=== PATIENT | female | born 1955 | race Caucasian/White ===

== ENCOUNTER → 2020-07-18 17:40 | Outpatient (CLI) | payer OTHER, SELFPAY ==
--- NOTE | ~2020-07-18 | DEXA_ITS ---
Bone Density Report Name: Mabel Hernandez Age: 64 Sex: Female Ethnicity: White Date of : 1955 Indication: postmenopausal osteoporosis; monitoring treatment; prior fracture; hysterectomy; Referring Provider: Anna Martínez Study: Bone densitometry was performed. Exam Date: July 18, 2020 Accession number: [id number] Bone Density: Region BMD T-score Z-score Classification AP Spine (L1-L4) 0.716 -3.0 -1.3 Osteoporosis Femoral Neck (Left) 0.561 -2.6 -1.1 Osteoporosis Total Hip (Left) 0.746 -1.6 -0.4 Osteopenia Femoral Neck (Right) 0.521 -3.0 -1.5 Osteoporosis Total Hip (Right) 0.644 -2.4 -1.3 Osteopenia Total Hip Mean 0.695 -2.0 -0.9 Osteopenia World Health Organization criteria for BMD impression classify patients as: Normal (T-score at or above -1.0), Osteopenia (T-score between -1.0 and -2.5), or Osteoporosis (T-score at or below -2.5). 10-year Fracture Risk: FRAX not reported because: Some T-score for Spine Total or Hip Total or Femoral Neck at or below -2.5 Treated for osteoporosis Previous Exams: Region Exam Age BMD T-score BMD Change BMD Change Date g/cm2 vs Baseline vs Previous AP Spine(L1-L4) 07/18/2020 64 0.716 -3.0 -0.038* 0.016 05/27/2019 63 0.700 -3.2 -0.055* -0.032* 01/18/2016 60 0.731 -2.9 -0.023* -0.023* 09/24/2013 58 0.754 -2.7 Total Hip(Left) 07/18/2020 64 0.746 -1.6 -0.034* 0.009 05/27/2019 63 0.737 -1.7 -0.043* 0.008 01/18/2016 60 0.729 -1.7 -0.051* -0.051* 09/24/2013 58 0.780 -1.3 Total Hip(Right) 07/18/2020 64 0.644 -2.4 -0.014 0.000 05/27/2019 63 0.644 -2.4 -0.014 -0.013 01/18/2016 60 0.656 -2.3 -0.001 -0.001 09/24/2013 58 0.657 -2.3 *Denotes significance at 95% confidence level, LSC for AP Spine = 0.022 g/cm2, LSC for Total Hip = 0.027 g/cm2 Clinical Information Provided by Patient: Has had a low trauma fracture Is being treated for osteoporosis Has used the following medications: Actonel (i.e. risedronate), Vitamin D Has the following medical conditions: Hysterectomy Patient maximum height was 63.5 Menopause Age: 41 Drinks caffeinated beverages Onset of menses at age 12 Number of children 2 Impression: The patient has established osteoporosis, based on the Total Spine T-score and the existence of a prior fr
--- NOTE | ~2020-07-18 | MM_ITS ---
EXAMINATION: MM screening horace BI w aditi HISTORY: Screening mammogram TECHNIQUE: Craniocaudal and mediolateral oblique 3-D tomosynthesis images were obtained and synthetic 2-D images were generated. Bilateral rotated lateral cc views. CAD analysis was submitted and interp reted. COMPARISON: 05/27/2019, 01/14/2018, 01/18/2016 bilateral digital screening mammogram examinations BREAST PARENCHYMAL COMPOSITION: The breasts are heterogeneously dense, which may obscure small masses . FINDINGS: There is no evidence of suspicious mass, calcification, or architectural distortion to sugg est malignancy in either breast. There has been no suspicious interval change. IMPRESSION: 1. No mammographic evidence of malignancy. 2. Recommend routine screening mammography in one year. BI-RADS Category 1: Negative Reviewed, dictated and finalized at location A. ISH REMOVER
== END ==
PROVIDERS: Visit Provider Nurse Practitioner
DX: Z12.31 Encounter for screening mammogram for malignant neoplasm of breast (principal); Z78.0 Asymptomatic menopausal state; M85.89 Other specified disorders of bone density and structure, multiple sites; M81.0 Age-related osteoporosis without current pathological fracture
CPT/HCPCS: 77063; 77067; 77080

== ENCOUNTER → 2021-10-30 10:02 | Outpatient (CLI) | payer OTHER, SELFPAY ==
--- NOTE | ~2021-10-30 | MM_ITS ---
EXAMINATION: MM screening horace BI w aditi HISTORY: Screening mammogram TECHNIQUE: Craniocaudal and mediolateral oblique 3-D tomosynthesis images were obtained and synthetic 2-D images were generated. CAD analysis was submitted and interpreted. COMPARISON: 07/18/2020, 05/26/2019, 01/2018 bilateral screening mammogram examinations BREAST PARENCHYMAL COMPOSITION: FINDINGS: There is no evidence of suspicious mass, calcification, or architectural distortion to sugg est malignancy in either breast. There has been no suspicious interval change. IMPRESSION: 1. No mammographic evidence of malignancy. 2. Recommend routine screening mammography in one year. BI-RADS Category 1: Negative Reviewed, dictated and finalized at location A.
== END ==
PROVIDERS: PCP Internal Medicine; Visit Provider Nurse Practitioner
DX: Z12.31 Encounter for screening mammogram for malignant neoplasm of breast (principal)
CPT/HCPCS: 77063; 77067

== ENCOUNTER → 2022-08-27 12:24 | Outpatient (CLI) | payer MEDICARE, OTHER, SELFPAY ==
--- NOTE | ~2022-08-27 | DEXA_ITS ---
Bone Density Report Name: JOON RUIZ Age: 67 Sex: Female Ethnicity: White Date of : 1955 Indication: postmenopausal osteoporosis; monitoring treatment; prior fracture; hysterectomy; Referring Provider: Anna Martínez Study: Bone densitometry was performed. Exam Date: August 27, 2022 Accession number: [id number] Bone Density: Region BMD T-score Z-score Classification AP Spine (L1-L4) 0.693 -3.2 -1.4 Osteoporosis Femoral Neck (Left) 0.541 -2.8 -1.2 Osteoporosis Total Hip (Left) 0.708 -1.9 -0.6 Osteopenia Femoral Neck (Right) 0.528 -2.9 -1.3 Osteoporosis Total Hip (Right) 0.631 -2.5 -1.3 Osteoporosis Total Hip Mean 0.670 -2.2 -1.0 Osteopenia World Health Organization criteria for BMD impression classify patients as: Normal (T-score at or above -1.0), Osteopenia (T-score between -1.0 and -2.5), or Osteoporosis (T-score at or below -2.5). 10-year Fracture Risk: FRAX not reported because: Some T-score for Spine Total or Hip Total or Femoral Neck at or below -2.5 Treated for osteoporosis Previous Exams: Region Exam Age BMD T-score BMD Change BMD Change Date g/cm2 vs Baseline vs Previous AP Spine(L1-L4) 08/27/2022 67 0.693 -3.2 -0.061* -0.023* 07/18/2020 64 0.716 -3.0 -0.038* 0.016 05/27/2019 63 0.700 -3.2 -0.055* -0.032* 01/18/2016 60 0.731 -2.9 -0.023* -0.023* 09/24/2013 58 0.754 -2.7 Total Hip(Left) 08/27/2022 67 0.708 -1.9 -0.072* -0.037* 07/18/2020 64 0.746 -1.6 -0.034* 0.009 05/27/2019 63 0.737 -1.7 -0.043* 0.008 01/18/2016 60 0.729 -1.7 -0.051* -0.051* 09/24/2013 58 0.780 -1.3 Total Hip(Right) 08/27/2022 67 0.631 -2.5 -0.026 -0.013 07/18/2020 64 0.644 -2.4 -0.014 0.000 05/27/2019 63 0.644 -2.4 -0.014 -0.013 01/18/2016 60 0.656 -2.3 -0.001 -0.001 09/24/2013 58 0.657 -2.3 *Denotes significance at 95% confidence level, LSC for AP Spine = 0.022 g/cm2, LSC for Total Hip = 0.027 g/cm2 Clinical Information Provided by Patient: Has had a low trauma fracture Is being treated for osteoporosis Has used the following medications: Actonel (i.e. risedronate), Vitamin D Has the following medical conditions: Hysterectomy, hyperparathyroidism in 2018 Patient maximum height was 63.5 Menopause Age: 41 No regular weight bearing exercise Salcedo
== END ==
PROVIDERS: PCP Internal Medicine; Visit Provider Nurse Practitioner
DX: Z78.0 Asymptomatic menopausal state (principal); M81.0 Age-related osteoporosis without current pathological fracture; M85.89 Other specified disorders of bone density and structure, multiple sites
CPT/HCPCS: 77080

== ENCOUNTER 2023-08-26 12:07 | Outpatient (CLI) | payer MEDICARE, OTHER, SELFPAY ==
[2023-08-26 12:36] LABS: Basophils Absolute Auto 0.1 K/mm3 (0.0-0.1); Basophils Percent Auto 1.6 % (0.2-1.2); Eosinophils Absolute Auto 0.1 K/mm3 (0-0.3); Eosinophils Percent Auto 1.8 % (0-4.4); Hematocrit 37.2 % (37.0-47.0); Hemoglobin 12.6 g/dL (12.0-15.0); Immature Granulocyte Absolute 0.01 K/mm3 (0.00-0.031); Immature Granulocyte Percent A 0.2 % (0-0.5); Lymphocytes Absolute Auto 1.68 K/mm3 (0.9-3.2); Mean Corpuscular HGB Conc 33.9 g/dl (32-36); Mean Corpuscular Volume 94.4 fl (80-100); Mean Platelet Volume 8.3 fl (7.4-10.4); Monocytes Absolute Auto 0.3 K/mm3 (0.1-0.6); Monocytes Percent Auto 6.7 % (2.6-8.5); Neutrophils Absolute Auto 2.8 K/mm3 (1.3-6.7); Neutrophils Percent Auto 55.7 % (45.5-73.1); Platelet Count Result 280 k/mm3 (150-375); Red Blood Count 3.94 M/mm3 (4.2-5.4); Red Cell Distribution Width 12.7 % (11.5-14.5); White Blood Count 4.9 K/mm3 (4.5-10.0)
[2023-08-26 21:54] LABS: Alanine Aminotransferase 17 U/L (6-35); Albumin Level 4.7 g/dL (3.5-5.1); Alkaline Phosphatase 71 U/L (38-126); Anion Gap 8 mmol/L (4-12); Aspartate Amino Transferase 24 U/L (14-36); Bilirubin,Total 0.5 mg/dL (0.2-1.3); Blood Urea Nitrogen 14 mg/dL (7-17); Calcium 9.8 mg/dL (8.4-10.2); Carbon Dioxide 25 mmol/L (22-30); Chloride 108 mmol/L (98-107); Estimated Glomerular Filt Rate > 60; Glucose 95 mg/dL (65-110); Sodium 141 mmol/L (137-145)
[2023-08-26 23:06] LABS: Folic Acid > 20.0 ng/mL (2.76->20)
[2023-08-30 15:03] LABS: Methylmalonic Acid 196 nmol/L (87-318)
== END 2023-08-26 12:08 | disposition home or self-care (01) ==
LOC: ANHLAB 12:10
PROVIDERS: Nurse Practitioner Family; PCP Internal Medicine; Visit Provider Internal Medicine Hematology & Oncology
DX: D70.9 Neutropenia, unspecified (principal)
CPT/HCPCS: 36415; 80053; 82607; 82746; 83921; 85025; 88184

== ENCOUNTER 2023-09-06 07:37 | Outpatient (CLI) | payer MEDICARE, OTHER, SELFPAY ==
--- NOTE | ~2023-09-06 | US_ITS ---
US abdomen complete EXAMINATION: US Abdomen Complete INDICATION: Neutropenia PROCEDURE: Realtime High Resolution abdomen ultrasound. COMPARISON: No prior studies for comparison FINDINGS: Gallbladder within normal limits. No gallstones, pericholecystic fluid, gallbladder wall t hickening or biliary dilatation. Common bile duct measures 2.3 mm. Liver echotexture within normal limits without focal mass. Pancreas within normal limits. Pancreati c tail is obscured by bowel gas. Spleen is unremarkeable. Renal echotexture is within normal limits bilaterally without hydronephrosis, contour deforming mass or renal stone. Right kidney measures 10.7 cm. Left kidney measures 9.6 cm. There is a left renal cyst measuring 4.6 cm. Visualized aspects of the aorta and IVC are within normal limits. Portal vein is patent. No sonograph ic Cary's sign indicated by the technologist. IMPRESSION: 1: Left renal cyst measuring 4.6 cm. Reviewed, dictated and finalized at location B.
== END 2023-09-06 07:38 | disposition home or self-care (01) ==
PROVIDERS: PCP Internal Medicine; Visit Provider Nurse Practitioner Family
DX: D70.9 Neutropenia, unspecified (principal); N28.1 Cyst of kidney, acquired
CPT/HCPCS: 76700

== ENCOUNTER 2023-12-31 14:42 | Outpatient (CLI) | payer MEDICARE, OTHER, SELFPAY ==
--- NOTE | ~2023-12-31 | MM_ITS ---
EXAMINATION: MM screening horace BI w aditi HISTORY: Screening TECHNIQUE: Craniocaudal and mediolateral oblique 3-D tomosynthesis images were obtained and synthetic 2-D images were generated. CAD analysis was submitted and interpreted. COMPARISON: Comparison to multiple prior studies sequentially, with oldest reviewed study dated 11/2015. BREAST PARENCHYMAL COMPOSITION: Dense: The breasts are extremely dense, which lowers the sensitivity of mammography. FINDINGS: There is no evidence of suspicious mass, calcification, or architectural distortion to sugg est malignancy in either breast. There has been no suspicious interval change. IMPRESSION: 1. No mammographic evidence of malignancy. 2. Recommend routine screening mammography in one year. BI-RADS Category 1: Negative Reviewed, dictated and finalized at location B.
== END 2023-12-31 14:43 ==
LOC: MICIMG 14:42
PROVIDERS: PCP Nurse Practitioner; Visit Provider Nurse Practitioner
DX: Z12.31 Encounter for screening mammogram for malignant neoplasm of breast (principal)
CPT/HCPCS: 77063; 77067

== ENCOUNTER 2024-10-08 08:48 | Outpatient (CLI) | payer MEDICARE, OTHER, SELFPAY ==
--- NOTE | ~2024-10-08 | US_ITS ---
EXAMINATION: US arterial ankle brachial ind DATE: 10/08/2024 09:42 INDICATION: Peripheral vascular disease TECHNIQUE: Segmental pressures and plethysmographic and Doppler waveforms of the brachial and lower e xtremity arteries were obtained. COMPARISON: None. FINDINGS: Right and left brachial artery pressures of 122 mm Hg and 125 mm Hg, respectively, are concordant (no rmal difference <= 30 mmHg). The right ankle-brachial index (SHARON) is 1.21 (normal >= 0.9-1.0). The right great toe-brachial index (TBI) is 0.97 (normal >= 0.65). Arterial Doppler waveforms demonstrate brisk systolic upstrokes at akash th right posterior tibial and dorsalis pedis arteries. The left SHARON is 1.30. The left TBI is 0.75. Arterial Doppler waveforms demonstrate brisk systolic ups trokes at both left posterior tibial and dorsalis pedis arteries. IMPRESSION: 1. No significant arterial occlusive disease with normal bilateral ABIs and TBIs. Reviewed, dictated and finalized at location A. IMPRESSION: 1. No significant arterial occlusive disease with normal bilateral ABIs and TBI s.
--- OUTSIDE RECORDS SUMMARY | 2024-10-08 09:00 | XMS_ITS | Clinical Summary ---
Author Organization [facility] Address [address] [address] Care Team Providers Care Reinforcing Bar Setter Name Role Phone Unavailable Primary Care Provider Unavailabl e Source Comments [facility],non-owned Affiliates and Associated Physician Practices is amultiple site organization consisting of ambulatory clinics and hospital sitesin [place], [place], [place] and [place]. This disclosure is being madepursuant to the Care Everywhere program and may not contain all information available regarding this patient. 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 Gender Identity Not on file Sexual Orientation Not on file Plan of Treatment Health Maintenance Due Date Last Done Comments BONE DENSITY TESTING 1955 COLOGUARD (AGES 45-75) - COL ON CA SCREENING 1955 COLON MONITORING 1955 COLONOSCOPY - COLON CA SCREENING 1955 CT COLONOGRAPHY - COLON CA SCREENING 1955 Colorectal Cancer Screening 1955 FIT - COLON CA SCREENING 1955 FLEX SIG - COLON CA SCREENING 1955 LIPID TESTING 1955 MAMMOGRAM 1955 HEPATITIS C SCREENING 07/31/1974 DTAP/TDAP/TD VACCINES (1 - Tdap) 08/05/1975 PNEUMOCOCCAL VACCINE 50+ (1 of 1 - PCV) 2006 ZOSTER VACCINE (1 of 2) 2006 COVID-19 VACCINE ( - 2023-2 5 season) 2024 DEPRESSION SCREENING 05/13/2024 MEDICARE AWV CALENDAR YEAR 2024 INFLUENZA VACCINE (Season Ended) 2025 Respiratory Syncytial Virus (RSV) Vaccine Pt: or over 60 yrs (1 - 1-dose 75+ series) 08/05/2031 HEPATITIS B VACCINE Aged Out No longe r eligible based on patient's age to complete this topic HIB VACCINE Aged Out No longer eligi ble based on patient's age to complete this topic HPV VACCINE Aged Out No longer eligi ble based on patient's age to complete this topic MENINGOCOCCAL (Group B) VACC INE SHARED DECISION-MAKING Aged Out No longer eligibl e based on patient's age to complete this topic MENINGOCOCCAL GROUPS A/C/Y/W VACCINE Aged Out No longer eligible b ased on patient's age to complete this topic Insurance [facility] AETNA AETNA MEDICARE ADV [facility] MEDICARE ADV [facility] MEDICARE ADV
--- OUTSIDE RECORDS SUMMARY | 2024-10-08 09:00 | XMS_ITS | Clinical Summary ---
[facility] Address [address] [place] [address] Care Team Providers Care Hip Hop Artist Name Role Phone James Mckinley DO Primary Care Provider Allergies Active Allergy Reactions Criticality Noted Date Comments Penicillin Swelling Low 08/26/2023 Topiramate Anaphylaxis High 08/26/2023 Medications SUMAtriptan (IMITREX) 100 mg tablet Take 100 mg by mouth see administration instructions. may repeat in 2 hours; max dose 200mg in 24 hours Active cholecalcifero l, Vitamin D3, 125 mcg (5,000 unit) Capsule Take 5,000 Units by mouth daily. Active magnesium oxide (MAG-OX) 400 mg (241.3 mg magnesium) tablet Take 400 mg by mouth daily. Active Fish Oil-Osgood-3 Fatty Acids 300-500 mg Capsule Take 1,500 mg by mouth daily. Active ibuprofen (MOTRIN) 400 mg tablet Take 400 mg by mouth every 6 hours as needed for Pain, Mild. Active doxylamine (UNISOM) 25 mg Tablet Take 25 mg by mouth nightly as needed for Insomnia. Active docusate sodium (COLACE) 100 mg capsule Take 100 mg by mouth 2 times daily. Active Active Problems No known active problems Encounters Date Type Department Care Team Description 09/30/2024 External Device Data ST[facility] ABSTRACTION Provider, Abstract 09/29/2024 External Device Data STL ABSTRACTION Provider, Abstract 07/29/2024 External Device Data STL ABSTRACTION Provider, Abstract 07/18/2024 External Device Data STL ABSTRACTION Provider, Abstract 07/17/2024 External Device Data STL ABSTRACTION Provider, Abstract 07/15/2024 External Device Data STL ABSTRACTION Provider, Abstract 07/15/2024 External Device Data STL ABSTRACTION Provider, Abstract from Last 3 Months Family History Medical History Relation Name Comments Hypertension Child 1 No Known Problems Child 2 Cancer Father Hyperlipidemia Mother No Known Problems Sister 1 Hyperlipidemia Sister 2 Relation Name Status Comments Child 1 Alive Child 2 Alive Father Mother Sister 1 Alive Sister 2 Alive Social History Tobacco Use Types Packs/Day Years Used Date Smoking Tobacco: Never Smokeless Tobacco: Never Alcohol Use Standard Drinks/Week Comments Never 0 (1 standard drink = 0.6 oz pur e alcohol) Comments Unknown Sex and Gender Information Value Date Recorded Sex Assigned at Not on file Legal Sex Female 3:43 PM CDT Gender Identity Not on file Sexual Orientation Not on file Last Filed Vital Signs Vital Sign Reading Time Taken Comments Blood Pressure 123/77 08/26/2023 11:01 AM CDT Pulse 71 08/26/2023 11:01 AM CDT Temperature 36.8 C (98.2 F) 08/26/2023 11:01 AM CDT Respiratory Rate 16 08/26/2023 11:0 1 AM CDT Oxygen Saturation 96% 08/26/2023 11: 01 AM CDT Inhaled Oxygen Concentration - - Weight 59.8 kg (131 lb 12.8 oz) 024 11:01 AM CDT Height 158.8 cm (5' 2.5) 08/26/2023 11 :01 AM CDT Body Mass Index 23.72 08/26/2023 11:01 AM CDT Plan of Treatment Health Maintenance Due Date Last Done Comments DTAP/TDAP/TD VACCINES (1 - Tdap) 08/05/1975 BREAST CANCER SCREENING 1996 COLORECTAL SCREENING 2001 Colorectal Cancer Screening 2001 FIT-DNA Q 3 years 2001 FIT/FOBT Q 1 year 2001 Flex Sig/CT Colonography Q 5 years 2001 PNEUMOCOCCAL VACCINE 50+ YEA RS (1 of 1 - PCV) 2006 ZOSTER VACCINE (1 of 2) 2006 OSTEOPOROSIS SCREENING 2021 INFLUENZA VACCINE (#1) 2023 COVID-19 Vaccine (3 - season) 01/12/202408/2020, 06/16/2020 RSV VACCINE (60+ or ) (1 - 1-dose 75+ series) 08/05/2031 Insurance AETNA PPO MCR FOR LIFE Care Teams Hip Hop Artist Relationship Specialty Start Date End Date James Mckinley DO [address] [phone] PCP - General Internal Medicine 08/26/23
--- OUTSIDE RECORDS SUMMARY | 2024-10-08 09:00 | XMS_ITS | Encounter Summary ---
Author Organization [facility] Address [address] [place] [address] Care Team Providers Care Building Insulation Supervisor Name Role Phone Unavailable Primary Care Provider Unavailabl e Encounter Details Date Type Department Care Team (Late st Contact Info) Description 04/21/2018 Lab Requisition [facility] [address] [place] [address] Palma Delaney MD [address] 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 Gender Identity Not on file Sexual Orientation Not on file documented as of this encounter Plan of Treatment Not on file documented as of this encounter Procedures Procedure Name Priority Date/Time Associated Diagnosis Comments DERMATOPATH TECHNICAL REPORT Routine 04/17/2018 12:00 AM BRIM BLOCKER documented in this encounter Results * DERMATOPATH TECHNICAL REPORT (04/17/2018 12:00 AM BRIM BLOCKER) Case Report Dermatopathology Report Case: [id number] Authorizing Provider: Palma Delaney MD Collected: 04/17/2018 12:00 AM Pathologist: Jay Alberts MD Received: 04/21/2018 07:20 AM Specimen: Skin, left dorsal hand 8 9:05 AM [facility] Addendum 1 At the request of the diagnosing physician, the technical component for MART 1/Melan A was performed by [facility] Dermatopathology Laboratory 8 9:05 AM [facility] Addendum electronically signed by Jay Alberts MD on 04/25/2018 at 0905 [facility] Clinical History Lentigo, irreg border. 9:05 AM [facility] DERMATOPATHOLOGY LABORATORY Gross Description Specimen A: Received is one formalin filled container labeled with the patient's name and designated left dorsal hand. The specimen consists of a shave measuring [id number]. Jar 0. [facility] Dermatopathology Laboratory performed the technical component only. 8 9:05 AM [facility] DERMATOPATHOLOGY LABORATORY Embedded Images 9:05 AM [facility] DERMATOPATHOLOGY LABORATORY DISCLAIMER An external and internal positive and negative controls are appropriate for the histochemical, immunohistochemical and immunofluorescence stain(s) in this case (if any), except where stated explicitly. The performance characteristics of the stain(s) cited in this report were developed and its performance characteristic determined by the Dermatopathology Laboratory at [facility]. These tests need not be, and therefore are not, approved by the [place] Food and Drug Administration. The tests are used for clinical purposes. 9:05 AM [facility] DERMATOPATHOLOGY LABORATORY at [address] [facility] Pathology/Cytolog y TISSUE SPECIMEN FROM SKIN / Unknown 04/17/2018 04/21/2018 7:20 AM [facility] Palma Delaney MD LAB - PATHOLOGY/CYTOLOGY OR DERABLES Edited Result - Final DERMATOPATHOLOGY LABORATORY [facility] - Department of Dermatology [facility] [facility] 5th [place] [address], [facility] [phone] documented in this encounter Visit Diagnoses Not on filedocumented in this encounter
--- OUTSIDE RECORDS SUMMARY | 2024-10-08 09:00 | XMS_ITS | Continuity of Care Document ---
Author Name [facility] Organization [facility] Care Team Providers Care Driver Helper Name Role Phone [facility] Unavailable Unavailable Immunizations Combined list of available immunizations from the Department of Defense and Veterans Affairs facilities. Immunization Series Date Given Administered By Site Reaction Lot Number CVX Code Drug Broiler Manager Status Comments Source Tdap 2021 ALUL, () Not Given Tdap [facility] pneumococcal polysaccharid e PPV23 2021 ALUL, () Not Given pneumococ cooper polysacch aride PPV23 [facility] influenza, injectable, quadrivalent, preservative free 2020 JANEY, () Not Given influenza , injectabl e, quadrival ent, preservat oksana free [facility] influenza, injectable, quadrivalent, preservative free 2019 ALUL, () Not Given influenza , injectabl e, quadrival ent, preservat oksana free [facility] influenza, injectable, quadrivalent, preservative free 2018 ALUL, () Not Given influenza , injectabl e, quadrival ent, preservat oksana free [facility] Social History Combined list of available smoking, tobacco, and other social history from Department of Defense and Veterans Affairs facilities. Social History Type Response Date Comment [facility] e This section is an empty social history section. [facility]
--- OUTSIDE RECORDS SUMMARY | 2024-10-08 09:00 | XMS_ITS | Patient Health Record ---
Author Organization Counts include 234 beds at the [facility] Address [address] [place] [address] Care Team Providers Care Water Resources Business Segment Leader Name Role Phone Kai Chambers Primary Care Provider Reason For Referral No Information Immunizations Vaccine Route Administration Date Status Comme nts COVID-19 Moderna 1ST IM Intramuscular 06/16/2020 Administered Order Selector: Moderna. Patient tolerated well. COVID-19 Moderna 2nd IM Intramuscular 07/14/2020 Administered Plan Of Treatment No Information Insurance Providers Payer Name Payer Address Payer Phone Subscriber Number Group Number Insured Name Patient Relationship to Insured Coverage Start Date Coverage End Date [facility] [address] [place] [address] [id number] Mabel Hernandez Self - patient is the insured
== END 2024-10-08 08:49 | disposition home or self-care (01) ==
PROVIDERS: PCP Nurse Practitioner; Visit Provider Nurse Practitioner
DX: I73.9 Peripheral vascular disease, unspecified (principal)
CPT/HCPCS: 93922

== ENCOUNTER 2024-12-28 00:56 | Day surgery (SDC) | payer MEDICARE, OTHER, SELFPAY ==
[2024-12-21 10:16] VITALS: BMI 22.6
--- OUTSIDE RECORDS SUMMARY | 2024-12-28 00:59 | XMS_ITS | Clinical Summary ---
Author Organization [facility] Address [address] [place] [address] Care Team Providers Care Heater Tender Name Role Phone James Mckinley DO Primary [...] 400 mg by mouth daily. Active Fish Oil-Halifax-3 Fatty Acids 300-500 mg Capsule Take 1,500 [...] Encounters Date Type Department Care Team Description 12/16/2024 External Device Data STL ABSTRACTION Provider, Abstract 12/15/2024 External Device Data STL ABSTRACTION Provider, Abstract 11/25/2024 External Device Data STL ABSTRACTION Provider, Abstract 11/25/2024 External Device Data STL ABSTRACTION Provider, Abstract 11/24/2024 External Device Data STL ABSTRACTION Provider, Abstract 09/30/2024 External Device Data STL ABSTRACTION Provider, [...] (1 of 2) 2006 OSTEOPOROSIS SCREENING 2021 COVID-19 Vaccine (3 - season) 01/12/202408/2020, 06/16/2020 INFLUENZA VACCINE (#1) 2024 RSV VACCINE (60+ or ) (1 - 1-dose 75+ series) 08/05/2031 Insurance [employer] PPO MCR FOR LIFE Care Teams Heater Tender Relationship Specialty Start Date End Date James Mckinley DO [address] [phone] PCP - General Internal Medicine 08/26/23
--- OUTSIDE RECORDS SUMMARY | 2024-12-28 00:59 | XMS_ITS | Patient Health Record ---
Author Organization [facility] Address [address] [place] [address] Care Team Providers Care Cancer Registry Manager Name Role Phone Kai Chambers Primary Care Provider [phone] Reason For Referral No Information Immunizations Vaccine Route Administration Date Status Comme nts COVID-19 Moderna 2nd IM Intramuscular 07/14/2020 Administered COVID-19 Moderna 1ST IM Intramuscular 06/16/2020 Administered Human Geography Instructor: Moderna. Patient tolerated well. Plan Of Treatment No Information Insurance Providers Payer Name Payer Address Payer Phone Subscriber Number Group Number Insured Name Patient Relationship to Insured Coverage Start Date Coverage End Date [facility] [address] [place] [address] [id number] Mabel Hernandez Self - patient is the insured
--- OUTSIDE RECORDS SUMMARY | 2024-12-28 00:59 | XMS_ITS | Continuity of Care Document ---
Author Name [facility] Organization [facility] Care Team Providers Care Drop Hammer Pile Driver Operator Name Role Phone [facility] Unavailable Unavailable Immunizations Combined list of available immunizations from the Department of Defense and Veterans Affairs facilities. Immunization Series Date Given Administered By Site Reaction Lot Number CVX Code Drug Backhoe Operator Status Comments Source Tdap 2021 ALUL, () Not Given Tdap [facility] pneumococcal polysaccharid e PPV23 2021 ALUL, () Not Given pneumococ cooper polysacch aride PPV23 [facility] influenza, injectable, quadrivalent, preservative free 2020 JANEY, () Not Given influenza , injectabl e, quadrival ent, preservat oksana free [facility] influenza, injectable, quadrivalent, preservative free 2019 ALUL, () Not Given influenza , injectabl e, quadrival ent, preservat oksana free [facility] influenza, injectable, quadrivalent, preservative free 2018 ALUL, () Not Given influenza , injectabl e, quadrival ent, preservat oksana free [facility] Social History Combined list of available smoking, tobacco, and other social history from Department of Defense and Veterans Affairs facilities. Social History Type Response Date Comment [facility] e This section is an empty social history section. [facility]
--- OUTSIDE RECORDS SUMMARY | 2024-12-28 00:59 | XMS_ITS | Encounter Summary ---
Author Organization [facility] Address [address] [place] [address] Care Team Providers Care Client Application Support Engineer Name Role Phone Unavailable Primary Care Provider Unavailabl e Encounter Details Date Type Department Care Team (Late st Contact Info) Description 04/21/2018 Lab Requisition [facility] [address] [place] [address] Palma Delaney MD [address] [facility] [address] [place] [address] Social History Tobacco Use Types Packs/Day Years Used Date Smoking Tobacco: Never Assessed Comments Unknown Sex and Gender Information Value Date Recorded Sex Assigned at Not on file Legal Sex Female 3:27 PM MANAGER INDUSTRIAL Gender Identity Not on file Sexual Orientation Not on file documented as of this encounter Plan of Treatment Not on file documented as of this encounter Procedures Procedure Name Priority Date/Time Associated Diagnosis Comments DERMATOPATH TECHNICAL REPORT Routine 04/17/2018 12:00 AM MANAGER INDUSTRIAL documented in this encounter Results * DERMATOPATH TECHNICAL REPORT (04/17/2018 12:00 AM MANAGER INDUSTRIAL) Case Report Dermatopathology Report Case: [id number] Authorizing Provider: Palma Delaney MD Collected: 04/17/2018 12:00 AM Pathologist: Jay Alberts MD Received: 04/21/2018 07:20 AM Specimen: Skin, left dorsal hand 8 9:05 AM [facility]GER [facility] Addendum 1 At the request of the diagnosing physician, the technical component for MART 1/Melan A was performed by [facility] Dermatopathology Laboratory 8 9:05 AM [facility]NA[facility] DERMATOPATHOLOGY LABORATORY Addendum electronically signed by Jay Alberts MD on 04/25/2018 at 0905 [facility] Clinical History Lentigo, irreg border. 9:05 AM [facility] DERMATOPATHOLOGY LABORATORY Gross Description Specimen A: Received is one formalin filled container labeled with the patient's name and designated left dorsal hand. The specimen consists of a shave measuring [id number]. Jar 0. [facility] Dermatopathology [facility] performed the technical component only. 8 9:05 AM [facility] DERMATOPATHOLOGY LABORATORY Embedded Images 9:05 AM [facility] DERMATOPATHOLOGY LABORATORY DISCLAIMER An external and internal positive and negative controls are appropriate for the histochemical, immunohistochemical and immunofluorescence stain(s) in this case (if any), except where stated explicitly. The performance characteristics of the stain(s) cited in this report were developed and its performance characteristic determined by the Dermatopathology Laboratory at [facility]. These tests need not be, and therefore are not, approved by the [place] Food and Drug Administration. The tests are used for clinical purposes. 9:05 AM [facility] DERMATOPATHOLOGY LABORATORY at [address] [facility] Pathology/Cytolog y TISSUE SPECIMEN FROM SKIN / Unknown 04/17/2018 04/21/2018 7:20 AM [facility] Palma Delaney MD LAB - PATHOLOGY/CYTOLOGY OR DERABLES Edited Result - Final DERMATOPATHOLOGY LABORATORY [facility] - Department of Dermatology [facility] [facility] [address]th [place] [address], [facility] [phone] documented in this encounter Visit Diagnoses Not on filedocumented in this encounter
--- OUTSIDE RECORDS SUMMARY | 2024-12-28 00:59 | XMS_ITS | Clinical Summary ---
Author Organization [facility] Address [address] [place] [address] Care Team Providers Care Chauffeur Name Role Phone Unavailable Primary Care Provider Unavailabl e Source Comments [facility],non-owned Affiliates and Associated Physician Practices is amultiple site organization consisting of ambulatory clinics and hospital sitesin [place], [place], [place] and [place]. This disclosure is being madepursuant to the Care Everywhere program and may not contain all information available regarding this patient. 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
[2024-12-28 06:23] VITALS: BP 107/66; PULSE 81; RESP 18; TEMP 36.4; O2SAT 100; BMI 22.6
[2024-12-28] MEDS: LACTATED RINGERS 1,000 ML 150 ML IV CONT (06:30)
--- NOTE | 2024-12-28 06:50 | WPDANESEPPF ---
Anes - Initial Pre Proc Eval Procedure: Operation Date: 12/28/24 07:30 Proposed Procedures p Screening Colonoscopy - Lg Guillen MD Date/Time: 12/28/24 06:50 Surgeon: Lg Guillen MD Pre Op Diagnosis: Encounter for screening for malignant neoplasm of Patient Data Age: 69 Gender: F Height: 1.6 m Weight: 57.8 kg Last Vital Signs Temp 36.4 C 12/28/24 06:23 Pulse 81 12/28/24 06:23 Resp 18 12/28/24 06:23 BP 107/66 12/28/24 06:23 Pulse Ox 100 12/28/24 06:23 O2 Del Method Room Air 12/28/24 06:23 Allergies Allergy/AdvReac Type Severity Reaction Status Date / Time Penicillins Allergy Unknown Swelling Verified 12/28/24 06:20 topiramate Allergy Unknown Swelling Verified 12/28/24 06:20 of Lip/Tongue/Throat Home Medications ?Medication ?Instructions ?Recorded ?Confirmed ?Type cholecalciferol (vitamin D3) 25 4,000 unit PO DAILY 05/23/20 12/28/24 History mcg (1,000 unit) capsule MagOx magnesium 400 mg BYMOUTH DAILY 08/10/24 12/28/24 History [place]-3 Fish oil 1,500 mg BYMOUTH DAILY 08/10/24 12/21/24 History sumatriptan succinate 100 mg tablet See Rx Instructions .Route 08/10/24 12/28/24 Rx .COMPLEX #12 tabs diclofenac sodium 1 % topical gel 2 g topical ONCE PRN leg pain 12/21/24 12/28/24 History (Arthritis Pain (diclofenac)) fexofenadine 60 mg tablet (Ruth 60 mg PO Q12H PRN allergy symptoms 12/21/24 12/28/24 History Allergy) Patient hx anesthesia problems: none Family hx anesthesia problems: none Results Review: All pre-operative results and documents have been reviewed as part of the pre-operative evaluation. [facility] Past Medical History Medical History Age related osteoporosis Patella fracture Chicken pox Constipation Pertussis History of measles, mumps, or rubella Hypercalcemia Vitamin D deficiency Hypercholesterolemia Surgical History Surgical History History of parathyroidectomy H/O: hysterectomy 1996 Hx of tonsillectomy Family History Family History Mother Myelodysplasia (myelodysplastic syndrome) Other Acute myocardial infarction Social History Social History Social History: Caffeine-very little Smoking status: Never smoker Alcohol intake: never Substance use: never Living arrangements: with family Spiritual care concerns: No Anes - Eval Final PreProcedure Day of Procedure 12/28/24 06:50 Patient weight: normal Heart: regular rate and rhythm Lungs: clear to auscultation Airway: Mallampati scale class II Neurological: alert and oriented Last oral intake: >/= 8 hours ASA classification: III Emergent: no Anesthetic plan: proceed Anesthesia type and monitoring: general GIVS and standard monitoring Results Review: All pre-operative results and documents have been reviewed as part of the pre-operative evaluation. Informed Consent: The patient's anesthetic plan and its attendant risks and benefits were discussed with the patient/family/POA. Questions were solicited and answers provided to the satisfaction of the patient/family/POA.
--- NOTE | 2024-12-28 07:33 | PM.IMHP ---
H&P: HPI History of Present Illness Date/Time: 12/28/24 07:33 Chief Complaint: Screening colonoscopy Narrative: This is the patient's 2nd colonoscopy. There are no GI symptoms and there is no family history of colorectal cancer. Review of Systems Review of Systems: All systems reviewed & are unremarkable except as noted in HPI and below PMFSH Past Medical History Medical History Age related osteoporosis Patella fracture Chicken pox Constipation Pertussis History of measles, mumps, or rubella Hypercalcemia Vitamin D deficiency Hypercholesterolemia Surgical History Surgical History History of parathyroidectomy H/O: hysterectomy 1996 Hx of tonsillectomy Family History Family History Mother Myelodysplasia (myelodysplastic syndrome) Other Acute myocardial infarction Social History Social History Social History: Caffeine-very little Smoking status: Never smoker Alcohol intake: never Substance use: never Living arrangements: with family Spiritual care concerns: No Meds Home Medications and Allergies Home Medications ?Medication ?Instructions ?Recorded ?Confirmed ?Type cholecalciferol (vitamin D3) 25 4,000 unit PO DAILY 05/23/20 12/28/24 History mcg (1,000 unit) capsule MagOx magnesium 400 mg BYMOUTH DAILY 08/10/24 12/28/24 History [place]-3 Fish oil 1,500 mg BYMOUTH DAILY 08/10/24 12/21/24 History sumatriptan succinate 100 mg tablet See Rx Instructions .Route 08/10/24 12/28/24 Rx .COMPLEX #12 tabs diclofenac sodium 1 % topical gel 2 g topical ONCE PRN leg pain 12/21/24 12/28/24 History (Arthritis Pain (diclofenac)) fexofenadine 60 mg tablet (Ruth 60 mg PO Q12H PRN allergy symptoms 12/21/24 12/28/24 History Allergy) Allergies Allergy/AdvReac Type Severity Reaction Status Date / Time Penicillins Allergy Unknown Swelling Verified 12/28/24 06:20 topiramate Allergy Unknown Swelling Verified 12/28/24 06:20 of Lip/Tongue/Throat Vital Signs Vital Signs - 24 hr 12/28/24 06:23 Temperature 97.6 F Pulse Rate 81 Respiratory Rate 18 Blood Pressure 107/66 Pulse Oximetry 100 Oxygen Delivery Room Air Exam Const: General: cooperative and healthy appearing Resp: Effort & Inspection: normal respiratory effort and able to speak in complete sentences Auscultation: clear to auscultation bilaterally Cardio: Rate: regular rate Rhythm: regular rhythm GI: Inspection: normal to inspection GI Palp: No No hepatosplenomegaly present Auscultation: normal bowel sounds Rectal Exam: deferred Skin: General skin exam: normal color Psych: Appearance: grossly normal Mental Status: mental status grossly normal Assessment and Plan Assessment and plan (1) Screening for colon cancer: Code(s): Z12.11 - Encounter for screening for malignant neoplasm of colon Status: Acute Assessment and Plan: The patient is deemed a good candidate for the procedure. Consent signed. Will proceed.
[2024-12-28 07:53] VITALS: BP 97/55; PULSE 75; RESP 18; O2SAT 100
[2024-12-28 08:03] VITALS: BP 83/47; PULSE 71; RESP 18; O2SAT 98
[2024-12-28 08:13] VITALS: BP 103/59; PULSE 65; RESP 18; O2SAT 100
== END 2024-12-28 08:27 | disposition home or self-care (01) ==
PROVIDERS: PCP Nurse Practitioner; Referring Provider Nurse Practitioner; Visit Provider Internal Medicine Gastroenterology
PROC: 0DJD8ZZ Inspection of Lower Intestinal Tract, Via Natural or Artificial Opening Endoscopic (ICD-10-PCS; CPT 45378; principal; 2024-12-28 07:30)
DX: Z12.11 Encounter for screening for malignant neoplasm of colon (principal); K57.30 Diverticulosis of large intestine without perforation or abscess without bleeding; M81.0 Age-related osteoporosis without current pathological fracture; E55.9 Vitamin D deficiency, unspecified; E78.00 Pure hypercholesterolemia, unspecified; Z98.890 Other specified postprocedural states; Z82.49 Family history of ischemic heart disease and other diseases of the circulatory system
CPT/HCPCS: G0121; J2003; J2704; J7120

== ENCOUNTER 2025-01-01 10:34 | Outpatient (CLI) | payer MEDICARE, OTHER, SELFPAY ==
--- NOTE | ~2025-01-01 | MM_ITS ---
EXAMINATION: MM screening horace BI w [facility] HISTORY: Screening mammogram TECHNIQUE: Craniocaudal and mediolateral oblique 3-D tomosynthesis images were obtained and synthetic 2-D images were generated. CAD analysis was submitted and interpreted. COMPARISON: 12/31/2023, 10/30/2021, 07/18/2020 BREAST PARENCHYMAL COMPOSITION:Dense: The breasts are extremely dense, which lowers the sensitivity of mammography. FINDINGS: No suspicious mass, calcification, or architectural distortion are identified in either breast to suggest malignancy. There has been no suspicious interval change. IMPRESSION: No mammographic evidence of malignancy. Recommend routine screening mammography in one year. BI-RADS Category 1: Negative Reviewed, dictated and finalized at location .
== END 2025-01-01 10:35 | disposition home or self-care (01) ==
LOC: MICIMG 10:35
PROVIDERS: PCP Nurse Practitioner; Visit Provider Nurse Practitioner
DX: Z12.31 Encounter for screening mammogram for malignant neoplasm of breast (principal)
CPT/HCPCS: 77063; 77067